=== PATIENT | male | born 1990 | race Caucasian/White ===

== ENCOUNTER 2019-02-17 13:38 | Emergency (ER) | payer SELFPAY ==
[~2019-02-17] VITALS: Ht 162.6 cm; Wt 59.0 kg
[~2019-02-17 13:38] MED LIST: CHLO25CA9 PO; Nicotine 21MG TD
--- NOTE | 2019-02-17 14:18 | PHYS DOC ---
Past Medical History Past Medical History: Unknown Past Surgical History: Other Additional Past Surgical Histo: UNKNOWN Alcohol Use: Occasionally Drug Use: Methamphetamine, Phencyclidine Adult General Chief Complaint Chief Complaint: ANKLE PROBLEM HPI HPI Patient is a 29 year old male with history of methamphetamine use who presents to the ED today complaining of sharp 7 out of 10 right ankle pain that has been going on since February 07, 2019 when he was evaluated in the ED for methamphetamine overdose, admitted. Patient denies any known injury. Denies any numbness or tingling to the right lower extremity. States the pain is worse on weight- bearing. He is also complaining of swelling to the right ankle. Review of Systems Review of Systems Constitutional: Denies fever or chills [] Musculoskeletal: Reports right ankle pain Integument: Denies rash or skin lesions [] Neurologic: Denies headache, focal weakness or sensory changes [] All other systems were reviewed and found to be within normal limits, except as documented in this note. Allergies Allergies Allergies Coded Allergies Type Severity Reaction Last Updated Verified No Known Drug Allergies 02/06/19 No Physical Exam Physical Exam Constitutional: Well developed, well nourished, no acute distress, non-toxic appearance. [] Skin: Warm, dry, no erythema, no rash. [] Back: No tenderness, no CVA tenderness. [] Extremities: Right lower extremity with no obvious deformity. Moderate soft tissue swelling noted on the medial as well as lateral aspect of the right ankle. Full range of motion to the right ankle and foot. Tenderness to the medial as well as lateral aspect of her ankle. +2 right pedal pulse. Cap refill less than 2 seconds the right toes. Sensation intact to the right lower extremity. Neurologic: Alert and oriented X 3, normal motor function, normal sensory function, no focal deficits noted. [] Psychologic: Flat affect, appears intoxicated Current Patient Data Vital Signs Vital Signs Date Time Temp Pulse Resp B/P (MAP) Pulse Ox O2 Delivery O2 Flow Rate FiO2 02/17/19 14:01 98.7 100 18 162/98 (119) 99 Room Air 98.7 EKG EKG [] Radiology/Procedures Radiology/Procedures []PROCEDURE: ANKLE RIGHT 3V ANKLE RIGHT 3V, FOOT RIGHT 3V Clinical Indication: Right medial foot and ankle pain after fall Comparison: Right ankle, 2 views, 02/08/2019. Ankle Findings: There is no acute fracture or dislocation. The bony appearance is normal for patient age and the alignment is normal. The ankle mortise is intact. Question ankle joint effusion. There is moderate lateral and anterior ankle soft tissue swelling, worse than on prior study. Foot findings: There is no acute fracture or dislocation. The bony alignment is normal. There is no soft tissue abnormality. IMPRESSION: No acute fracture. Electronically signed by: Simba Ricardo MD (02/17/2019 2:35 PM) [facility] DICTATED and SIGNED BY: SIMBA RICARDO MD DATE: 02/17/19 1437 Course & Med Decision Making Course & Med Decision Making Pertinent Labs and Imaging studies reviewed. (See chart for details) This is a 29-year-old male patient presenting to the ED today with right ankle pain for 11 days no injury. Right ankle right foot x-rays interpreted by radiologist are negative for any acute findings. Salvador bandage and air cast applied to the right ankle by the ED RN, neurovascular exam is intact. Ice elevation encouraged. OTC pain relievers especially anti-inflammatories recommended. Follow-up with orthopedic doctor in one week. Dragon Disclaimer Dragon Disclaimer This electronic medical record was generated, in whole or in part, using a voice recognition dictation system. Departure Departure Impression: Primary Impression: Moderate right ankle sprain Additional Impression: Right foot pain Disposition: 01 HOME, SELF-CARE Condition: STABLE Referrals: NO PCP (PCP) RUBY MORAN MD Call his office on Tuesday and set up a follow-up appointment Patient Instructions: Ankle Sprain, [id number] Additional Instructions: You right ankle sprain and right foot pain, your right foot and right ankle x- rays are negative for any acute findings. Wear the Salvador bandage and air cast provided as tolerated. Try to ice and elevate the extremity. Take [id number] pain relievers especially anti-inflammatories like ibuprofen as needed for pain. Please call the orthopedic doctor on Tuesday and set up a follow-up appointment Problem Qualifiers Primary Impression: Moderate right ankle sprain Encounter type: initial encounter Qualified Codes: S93.401A - Sprain of unspecified ligament of right ankle, initial encounter CARMINE CHURCH APRN Feb 17, 2019 14:18
[2019-02-17 14:31] VITALS: BP 150/88
--- NOTE | 2019-02-17 14:38 | RAD ---
ANKLE RIGHT 3V, FOOT RIGHT 3V Clinical Indication: Right medial foot and ankle pain after fall Comparison: Right ankle, 2 views, 02/08/2019. Ankle Findings: There is no acute fracture or dislocation. The bony appearance is normal for patient age and the alignment is normal. The ankle mortise is intact. Question ankle joint effusion. There is moderate lateral and anterior ankle soft tissue swelling, worse than on prior study. Foot findings: There is no acute fracture or dislocation. The bony alignment is normal. There is no soft tissue abnormality. IMPRESSION: No acute fracture. Electronically signed by: Simba Dorsey MD (02/17/2019 2:35 PM) [facility]
== END 2019-02-17 14:56 | disposition home or self-care (01) ==
LOC: ER 13:38
DX: S93.401A Sprain of unspecified ligament of right ankle, initial encounter (principal); W18.39XA Other fall on same level, initial encounter; Y93.89 Activity, other specified; Y92.89 Other specified places as the place of occurrence of the external cause; Y99.8 Other external cause status
CPT/HCPCS: 73610; 73630; 99284; L4350

== ENCOUNTER 2019-04-06 18:19 | Emergency (ER) | payer SELFPAY ==
[~2019-04-06] VITALS: Ht 152.4 cm; Wt 59.0 kg
--- NOTE | 2019-04-06 18:29 | PHYS DOC ---
Past Medical History Past Medical History: Unknown Past Surgical History: Other Additional Past Surgical Histo: UNKNOWN Alcohol Use: Occasionally Drug Use: Methamphetamine, Phencyclidine Adult General Chief Complaint Chief Complaint: DRUG ABUSE HPI HPI Patient is a 29 year old male who presents via EMS with confusion after using K2. Patient's family called EMS and stated that patient is confused. Patient stated he used K2 once today and had alcohol yesterday. Patient denies any pain and was alert and oriented 2 at arrival to ER. Patient denies suicidal or homicidal ideation or hallucination. Review of Systems Review of Systems Constitutional: Denies fever or chills [] Eyes: Denies change in visual acuity, redness, or eye pain [] HENT: Denies nasal congestion or sore throat [] Respiratory: Denies cough or shortness of breath [] Cardiovascular: No additional information not addressed in HPI [] GI: Denies abdominal pain, nausea, vomiting, bloody stools or diarrhea [] : Denies dysuria or hematuria [] Musculoskeletal: Denies back pain or joint pain [] Integument: Denies rash or skin lesions [] Neurologic: Denies headache, focal weakness or sensory changes [] Endocrine: Denies polyuria or polydipsia [] All other systems were reviewed and found to be within normal limits, except as documented in this note. Current Medications Current Medications Current Medications Medications (Trade) Dose Ordered Sig/Rob Start Time Stop Time Status Last Admin Dose Admin Sodium Chloride 1,000 ml @ 1,000 mls/hr Q1H 04/06/19 18:30 04/06/19 19:29 DC 04/06/19 18:44 1,000 MLS/HR Allergies Allergies Allergies Coded Allergies Type Severity Reaction Last Updated Verified No Known Drug Allergies 02/06/19 No Physical Exam Physical Exam Constitutional: Well nourished, mild distress, non-toxic appearance. [] HENT: Normocephalic, atraumatic. Eyes: PERRLA, EOMI, conjunctiva normal, no discharge. [] Neck: Normal range of motion, no tenderness, supple, no stridor. [] Cardiovascular: Tachycardia, no murmur [] Lungs & Thorax: Bilateral breath sounds clear to auscultation [] Abdomen: Bowel sounds normal, soft, no tenderness, no masses, no pulsatile masses. [] Skin: Warm, dry, no erythema, no rash. [] Back: No tenderness, no CVA tenderness. [] Extremities: No tenderness, no cyanosis, no clubbing, ROM intact, no edema. [] Neurologic: Alert and oriented X 2, no focal deficits noted. [] Psychologic: Affect normal, judgement normal, mood normal. [] Current Patient Data Vital Signs Vital Signs Date Time Temp Pulse Resp B/P (MAP) Pulse Ox O2 Delivery O2 Flow Rate FiO2 04/06/19 20:49 2 15 92/59 (70) 97 Room Air 04/06/19 18:39 100.6 100.6 Lab Values Laboratory Tests Test 04/06/19 18:22 04/06/19 18:30 04/06/19 20:30 Glucose (Fingerstick) 175 mg/dL (70-99) H White Blood Count 8.4 x10^3/uL (4.0-11.0) Red Blood Count 4.08 x10^6/uL (4.30-5.70) L Hemoglobin 14.0 g/dL (13.0-17.5) Hematocrit 39.9 % (39.0-53.0) Mean Corpuscular Volume 98 fL (79-100) Mean Corpuscular Hemoglobin 34 pg (25-35) Mean Corpuscular Hemoglobin Concent 35 g/dL (31-37) Red Cell Distribution Width 13.4 % (11.5-14.5) Platelet Count 238 x10^3/uL (140-400) Neutrophils (%) (Auto) 59 % (31-73) Lymphocytes (%) (Auto) 33 % (24-48) Monocytes (%) (Auto) 6 % (0-9) Eosinophils (%) (Auto) 1 % (0-3) Basophils (%) (Auto) 1 % (0-3) Neutrophils # (Auto) 5.0 x10^3/uL (1.8-7.7) Lymphocytes # (Auto) 2.8 x10^3/uL (1.0-4.8) Monocytes # (Auto) 0.5 x10^3/uL (0.0-1.1) Eosinophils # (Auto) 0.1 x10^3/uL (0.0-0.7) Basophils # (Auto) 0.1 x10^3/uL (0.0-0.2) Prothrombin Time 13.6 SEC (11.7-14.0) Prothrombin Time INR 1.1 (0.8-1.1) Sodium Level 140 mmol/L (136-145) Potassium Level 3.4 mmol/L (3.5-5.1) L Chloride Level 105 mmol/L (98-107) Carbon Dioxide Level 28 mmol/L (21-32) Anion Gap 7 (6-14) Blood Urea Nitrogen 11 mg/dL (8-26) Creatinine 1.1 mg/dL (0.7-1.3) Estimated GFR (Cockcroft-Gault) 80.3 Glucose Level 165 mg/dL (70-99) H Calcium Level 9.1 mg/dL (8.5-10.1) Magnesium Level 1.9 mg/dL (1.8-2.4) Total Bilirubin 0.8 mg/dL (0.2-1.0) Direct Bilirubin 0.2 mg/dL (0.0-0.2) Aspartate Amino Transferase (AST) 36 U/L (15-37) Alanine Aminotransferase (ALT) 58 U/L (16-63) Alkaline Phosphatase 65 U/L (46-116) Total Protein 7.7 g/dL (6.4-8.2) Albumin 4.2 g/dL (3.4-5.0) Ethyl Alcohol Level < 3 mg/dL (0-10) Urine Color Gerda Urine Clarity Clear Urine pH 5.5 Urine Specific [place] 1.025 Urine Protein 100 mg/dL (NEG-TRACE) Urine Glucose (UA) Negative mg/dL (NEG) Urine Ketones (Stick) Negative mg/dL (NEG) Urine Blood Negative (NEG) Urine Nitrite Negative (NEG) Urine Bilirubin Small (NEG) Urine Urobilinogen Dipstick 2.0 mg/dL (0.2 mg/dL) Urine Leukocyte Esterase Negative (NEG) Urine RBC 0 /HPF (0-2) Urine WBC 1-4 /HPF (0-4) Urine Squamous Epithelial Cells Occ /LPF Urine Bacteria 0 /HPF (0-FEW) Urine Hyaline Casts Few /HPF Urine Mucus Mod /LPF Urine Opiates Screen Neg (NEG) Urine Methadone Screen Neg (NEG) Urine Barbiturates Neg (NEG) Urine Phencyclidine Screen Neg (NEG) Urine Amphetamine/Methamphetamine Neg (NEG) Urine Benzodiazepines Screen Neg (NEG) Urine Cocaine Screen Neg (NEG) Urine Cannabinoids Screen Pos (NEG) Urine Ethyl Alcohol Neg (NEG) Laboratory Tests 04/06/19 18:30 Laboratory Tests 04/06/19 18:30 EKG EKG EKG interpreted by me. EKG at 1837 showed sinus tachycardia at rate of 101, left atrial abnormality, no acute ST and T-wave abnormalities. Radiology/Procedures Radiology/Procedures [] Course & Med Decision Making Course & Med Decision Making Pertinent Labs studies reviewed. (See chart for details) Evaluation of patient in ER showed 29-year-old male patient with confusion after taking K2. Patient was treated with IV fluid in ER and his condition improved and was able tolerate without problem and asking the question without problem. I've spoken with the patient and/or caregivers. I've explained the patient's condition, diagnosis and treatment plan based on information available to me at this time. I've answered the patient's and/or caregivers questions and addressed any concerns. The patient and/or caregivers have a good understanding the patient's diagnosis, condition and treatment plan as can be expected at this point. Vital signs have been stabilized. The patient's condition is stable for discharge from the emergency department. The patient will pursue further outpatient evaluation with her primary care provider or other designated consulting physician as outlined in the discharge instructions. Patient and/or caregivers are agreeable to this plan of care and follow-up instructions have been explained in detail. The patient and/or caregivers have received these instructions in written format and expressed understanding of these discharge instructions. The patient and her caregivers are aware that if any significant change in condition or worsening of symptoms should prompt him to immediately return to this of the closest emergency department. If an emergent department is not readily available I would enco urage him to call 911. Heidi Disclaimer Heidi Disclaimer This electronic medical record was generated, in whole or in part, using a voice recognition dictation system. Departure Departure Impression: Primary Impression: Altered level of consciousness Additional Impressions: Substance abuse Hypokalemia Disposition: HOME, SELF-CARE (at 2107) Condition: IMPROVED Referrals: NO PCP (PCP) Patient Instructions: Altered Mental Status, Hypokalemia, Substance Abuse-Brief Additional Instructions: Drink plenty of liquids Follow-up with your primary care physician in 3-5 days Return to ER if not getting better Problem Qualifiers RADHA MERAZ MD Apr 06, 2019 18:29
[2019-04-06] MEDS ORDERED: IV NORMAL SALINE 1000ML BAG 1,000 ML IV SCH (18:30)
[2019-04-06 18:42] LABS: BASO # 0.1 x10^3/uL (0.0-0.2); BASO % 1 % (0-3); EOS # 0.1 x10^3/uL (0.0-0.7); EOS % 1 % (0-3); HEMATOCRIT 39.9 % (39.0-53.0); LYMPH # 2.8 x10^3/uL (1.0-4.8); LYMPH % 33 % (24-48); MEAN CORPUSCULAR HEMOGLOBIN 34 pg (25-35); MEAN CORPUSCULAR HGB CONC 35 g/dL (31-37); MEAN CORPUSCULAR VOLUME 98 fL (79-100); MONO # 0.5 x10^3/uL (0.0-1.1); MONO % 6 % (0-9); NEUT % 59 % (31-73); PLATELET COUNT 238 x10^3/uL (140-400); RED BLOOD COUNT 4.08 x10^6/uL (4.30-5.70); RED CELL DISTRIBUTION WIDTH 13.4 % (11.5-14.5); WHITE BLOOD COUNT 8.4 x10^3/uL (4.0-11.0)
[2019-04-06 18:51] LABS: CALCIUM 9.1 mg/dL (8.5-10.1); CREATININE 1.1 mg/dL (0.7-1.3); GFR 80.3; POTASSIUM 3.4 mmol/L (3.5-5.1)
[2019-04-06 18:56] LABS: PROTHROMBIN TIME PATIENT 13.6 SEC (11.7-14.0)
[2019-04-06 19:05] LABS: ALBUMIN 4.2 g/dL (3.4-5.0); DIRECT BILIRUBIN 0.2 mg/dL (0.0-0.2); MAGNESIUM 1.9 mg/dL (1.8-2.4); TOTAL BILIRUBIN 0.8 mg/dL (0.2-1.0); TOTAL PROTEIN 7.7 g/dL (6.4-8.2)
[2019-04-06 20:42] LABS: BILIRUBIN,URINE SMALL (NEG); CLARITY,URINE CLEAR; COLOR,URINE AMBER; NITRITE,URINE NEGATIVE (NEG); PH,URINE 5.5; PROTEIN,URINE 100 mg/dL (NEG-TRACE)
[2019-04-06 20:48] LABS: BARBITURATES NEG (NEG); BENZODIAZEPINES NEG (NEG); CANNABINOIDS POS (NEG); COCAINE NEG (NEG); METHADONE NEG (NEG); OPIATES NEG (NEG); PHENCYCLIDINE NEG (NEG)
[2019-04-06 20:49] VITALS: BP 92/59
[2019-04-06 20:49] LABS: AMPHETAMINE/METHAMPHETAMINE NEG (NEG)
[2019-04-06 20:54] LABS: BACTERIA,URINE 0 /HPF (0-FEW); RBC,URINE 0 /HPF (0-2); SQUAMOUS EPITHELIAL CELL,UR OCC /LPF
[2019-04-06 20:55] LABS: HYALINE CASTS, URINE FEW /HPF
--- NOTE | 2019-04-07 10:15 | EKG ---
[facility] [address] [place] [address] Test Date: 2019-04-06 Test Time: 18:37:35 Pat Name: ERICH QUEZADA Department: Room: Gender: M Talent Recruiter: : 1990 Requested By: RADHA MERAZ Order Number: [id number] Reading MD: Rubio Barron MD Measurements Intervals [place] Rate: 100 P: 62 [place]: 136 QRS: 47 QRSD: 86 T: 47 QT: 330 QTc: 428 Interpretive Statements SINUS TACHYCARDIA Electronically Signed On 04-17-2019 10:14:17 CDT by Rubio Barron MD
== END 2019-04-06 21:18 | disposition home or self-care (01) ==
LOC: ER 18:19
DX: R40.4 Transient alteration of awareness (principal); F12.10 Cannabis abuse, uncomplicated; E87.6 Hypokalemia; R41.0 Disorientation, unspecified; F15.10 Other stimulant abuse, uncomplicated; F16.10 Hallucinogen abuse, uncomplicated
CPT/HCPCS: 36415; 80048; 80076; 80307; 81001; 82962; 83735; 85025; 85610; 93005; 96360; 99285; G0480; J7030

== ENCOUNTER 2020-02-23 20:24 | Emergency (ER) | payer SELFPAY | END 2020-02-23 20:46 | disposition left against medical advice (07) | LOC: ER 20:24 | DX: M25.519 Pain in unspecified shoulder (principal); Z53.21 Procedure and treatment not carried out due to patient leaving prior to being seen by health care provider ==

== ENCOUNTER 2020-02-26 10:00 | Emergency (ER) | payer SELFPAY ==
[~2020-02-26] VITALS: Ht 162.6 cm; Wt 63.1 kg
[2020-02-26 10:12] VITALS: BP 128/94
--- NOTE | 2020-02-26 10:41 | PHYS DOC ---
Past Medical History Past Medical History: Unknown Additional Past Medical Histor: poor historian Past Surgical History: Other Additional Past Surgical Histo: UNKNOWN Smoking Status: Current Every Day Smoker Alcohol Use: Occasionally Drug Use: Methamphetamine, Phencyclidine, Other General Adult EDM: Chief Complaint: CHEST PAIN HPI: HPI: Patient is a 30-year-old male that I just discharged less than an hour ago checks and again with the same complaints asking for a coronavirus test. He has not had any fever or body aches he has pain in his chest from falling on a piece of wood recently. He admits to taking methamphetamines within the last couple of days. [] Review of Systems: Review of Systems: Constitutional: Denies fever or chills. [] Eyes: Denies change in visual acuity. [] HENT: Denies nasal congestion or sore throat. [] Respiratory: Denies cough or shortness of breath. [] Cardiovascular: Per HPI. [] GI: Denies abdominal pain, nausea, vomiting, bloody stools or diarrhea. [] : Denies dysuria. [] Musculoskeletal: Denies back pain or joint pain. [] Integument: Denies rash. [] Neurologic: Denies headache, focal weakness or sensory changes. [] Endocrine: Denies polyuria or polydipsia. [] Lymphatic: Denies swollen glands. [] Psychiatric: Denies depression or anxiety. [] Heart Score: Risk Factors: Risk Factors: DM, Current or recent (<one month) smoker, HTN, HLP, family history of CAD, obesity. Risk Scores: Score 0 - 3: 2.5% MACE over next 6 weeks - Discharge Home Score 4 - 6: 20.3% MACE over next 6 weeks - Admit for Clinical Observation Score 7 - 10: 72.7% MACE over next 6 weeks - Early Invasive Strategies Allergies: Allergies: Allergies Coded Allergies Type Severity Reaction Last Updated Verified No Known Drug Allergies 02/06/19 No Physical Exam: PE: Constitutional: Well developed, well nourished, no acute distress, non-toxic appearance, I woke the patient up from sleep when I came in to evaluate him.. [] HENT: Normocephalic, atraumatic, bilateral external ears normal, oropharynx moist, no oral exudates, nose normal. [] Eyes: PERRLA, EOMI, conjunctiva normal, no discharge. [] Neck: Normal range of motion, no tenderness, supple, no stridor. [] Cardiovascular:Heart rate regular rhythm, no murmur [] Lungs & Thorax: Bilateral breath sounds clear to auscultation, mild tender to palp no subcu air no crepitus left chest [] Abdomen: Bowel sounds normal, soft, no tenderness, no masses, no pulsatile mass es. [] Skin: Warm, dry, no erythema, no rash. [] Back: No tenderness, no CVA tenderness. [] Extremities: No tenderness, no cyanosis, no clubbing, ROM intact, no edema. [] Neurologic: Alert and oriented X 3, normal motor function, normal sensory function, no focal deficits noted. [] Psychologic: Anxious. [] EKG: EKG: [] Radiology/Procedures: Radiology/Procedures: [] Course & Med Decision Making: Course & Med Decision Making Pertinent Labs and Imaging studies reviewed. (See chart for details) [ED course: I once again explained to the patient that there was no indication to test him for coronavirus at this time. Again he became agitated and had to be escorted out by security] Heidi Disclaimer: Heidi Disclaimer: This electronic medical record was generated, in whole or in part, using a voice recognition dictation system. Departure Departure Impression: Primary Impression: Anxiety disorder due to medical condition Additional Impression: Methamphetamine use Disposition: 01 HOME, SELF-CARE Condition: STABLE Referrals: NO PCP (PCP) Patient Instructions: Anxiety and Panic Attacks Justicifation of Admission Dx: Justifications for Admission: Justification of Admission Dx: No BRUCE NOVAK DO Feb 26, 2020 10:41
--- NOTE | 2020-02-26 16:27 | EKG ---
[facility] [address] [place] [address] Test Date: 2020-02-26 Test Time: 09:00:51 Pat Name: ERICH QUEZADA Department: Room: Gender: M Associate Financial Advisor: : 1990 Requested By: BRUCE NOVAK Order Number: [id number] Reading MD: Measurements Intervals [place] Rate: 82 P: 69 [place]: 128 QRS: 71 QRSD: 90 T: 51 QT: 364 QTc: 428 Interpretive Statements SINUS RHYTHM QRS(T) CONTOUR ABNORMALITY CONSIDER ANTEROSEPTAL MYOCARDIAL DAMAGE POSSIBLY ABNORMAL ECG RI6.01 No previous ECG available for comparison
== END 2020-02-26 10:41 | disposition home or self-care (01) ==
LOC: ER 10:00
DX: F41.9 Anxiety disorder, unspecified (principal); F15.90 Other stimulant use, unspecified, uncomplicated; R07.89 Other chest pain; F17.200 Nicotine dependence, unspecified, uncomplicated
CPT/HCPCS: 93005; 99283

== ENCOUNTER 2020-02-28 05:32 | Emergency (ER) | payer SELFPAY ==
[~2020-02-28] VITALS: Ht 165.1 cm; Wt 60.0 kg
[2020-02-28] MEDS ORDERED: IOHEXOL 300 MG/ML 100ML VIAL. IV ONE (09:30)
[2020-02-28] MEDS ORDERED: CONTRAST GIVEN. MC PRN (09:30)
[2020-02-28 09:32] LABS: BASO # 0.1 x10^3/uL (0.0-0.2); BASO % 1 % (0-3); EOS # 0.1 x10^3/uL (0.0-0.7); EOS % 1 % (0-3); HEMATOCRIT 45.3 % (39.0-53.0); HEMOGLOBIN 15.4 g/dL (13.0-17.5); LYMPH # 2.6 x10^3/uL (1.0-4.8); LYMPH % 32 % (24-48); MEAN CORPUSCULAR HEMOGLOBIN 34 pg (25-35); MEAN CORPUSCULAR HGB CONC 34 g/dL (31-37); MEAN CORPUSCULAR VOLUME 99 fL (79-100); MONO # 0.8 x10^3/uL (0.0-1.1); MONO % 10 % (0-9); NEUT # 4.8 x10^3/uL (1.8-7.7); NEUT % 57 % (31-73); PLATELET COUNT 273 x10^3/uL (140-400); RED BLOOD COUNT 4.59 x10^6/uL (4.30-5.70); RED CELL DISTRIBUTION WIDTH 13.9 % (11.5-14.5); WHITE BLOOD COUNT 8.4 x10^3/uL (4.0-11.0)
[2020-02-28 09:46] LABS: CALCIUM 8.6 mg/dL (8.5-10.1); CREATININE 0.9 mg/dL (0.7-1.3); GFR 100.5; POTASSIUM 4.1 mmol/L (3.5-5.1)
--- NOTE | 2020-02-28 10:49 | RAD ---
EXAM: CT OF THE CHEST WITH CONTRAST. HISTORY: Trauma, chest pain. TECHNIQUE: Computed tomography of the chest was performed after the intravenous administration of iodinated contrast. One or more of the following individualized dose reduction techniques were utilized for this examination: 1. Automated exposure control. 2. Adjustment of the mA and/or kV according to patient size. 3. Use of iterative reconstruction technique. COMPARISON: None. FINDINGS: Images of the upper abdomen reveal no acute abnormality. Bone windows reveal no suspicious lesions. There are no displaced rib fractures. There are no pathologically enlarged mediastinal or axillary lymph nodes. There is no pleural or pericardial effusion. The heart is not enlarged. There is a normal variant origin of the left vertebral artery directly from the aortic arch. Mild to moderate paraseptal emphysema throughout the apices is relatively advanced for patient age. There is no pneumothorax. IMPRESSION: 1. No evidence of acute injury to the chest. 2. Mild to moderate paraseptal emphysema is advanced for patient age. Electronically signed by: Kenji Calhoun MD (02/28/2020 10:46 AM) [id number]
[2020-02-28 10:56] VITALS: BP 133/78
[2020-02-28] MEDS ORDERED: IBUP-1007 PO (12:02)
[2020-02-28] MEDS ORDERED: METH-38 PO (12:02)
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
== END 2020-02-28 12:16 | disposition home or self-care (01) ==
LOC: ER 05:32
DX: R07.81 Pleurodynia (principal); F41.9 Anxiety disorder, unspecified; J45.909 Unspecified asthma, uncomplicated; F32.9 Major depressive disorder, single episode, unspecified; F17.200 Nicotine dependence, unspecified, uncomplicated; F19.90 Other psychoactive substance use, unspecified, uncomplicated
CPT/HCPCS: 36415; 71260; 80048; 84484; 85025; 99285; Q9967

== ENCOUNTER 2020-03-04 15:00 | Emergency (ER) | payer SELFPAY ==
[~2020-03-04] VITALS: Ht 162.6 cm; Wt 54.5 kg
[~2020-03-04 15:00] MED LIST changes: +IBUP-1007 PO; +METH-38 PO
--- NOTE | 2020-03-04 17:25 | PHYS DOC ---
Past Medical History Past Medical History: Anxiety, Asthma, Bronchitis, Depression, Seizure, U nknown, Other Additional Past Medical Histor: METH USE,EPILEPSY (SHAZIA CALDERON APRN) Past Surgical History: No Surgical History Additional Past Surgical Histo: UNKNOWN (SHZAIA CALDERON APRN) Smoking Status: Current Every Day Smoker Alcohol Use: Occasionally Drug Use: Methamphetamine, Phencyclidine, Other (SHAZIA CALDERON APRN) General Adult EDM: Chief Complaint: INSECT BITE HPI: HPI: Patient is a 30-year-old male who presents to the emergency department with complaints of a painful, red, tender area to the proximal fifth metacarpal of his right hand for the last 5 days. He denies any drainage or bleeding from the site. Patient believes that it first started as a spider bite. He denies any fever, numbness, tingling, weakness, itching, or decreased range of motion of the affected extremity. Patient reports a history of IV meth injection in the same arm 2 weeks ago. Patient denies any problems at the injection site. He currently rates his pain a 10 out of 10 on pain scale, he denies radiation of the pain, the pain is worse with movement and palpation. He states that the pain is constant. (SHAZIA CALDERON APRN) Review of Systems: Review of Systems: Constitutional: Denies fever or chills. [] Musculoskeletal: See HPI Integument: See HPI Neurologic: Denies focal weakness or sensory changes. [] Psychiatric: Denies depression or anxiety. [] (SHAZIA CALDERON APRN) Heart Score: Risk Factors: Risk Factors: DM, Current or recent (<one month) smoker, HTN, HLP, family history of CAD, obesity. Risk Scores: Score 0 - 3: 2.5% MACE over next 6 weeks - Discharge Home Score 4 - 6: 20.3% MACE over next 6 weeks - Admit for Clinical Observation Score 7 - 10: 72.7% MACE over next 6 weeks - Early Invasive Strategies (SHAZIA CALDERON APRN) Allergies: Allergies: Allergies Coded Allergies Type Severity Reaction Last Updated Verified No Known Drug Allergies 02/06/19 No (SHAZIA CALDERON APRN) Physical Exam: PE: Constitutional: Well developed, well nourished, no acute distress, non-toxic appearance. [] HENT: Normocephalic, atraumatic, bilateral external ears normal, nose normal. [] Eyes: PERRLA, EOMI, conjunctiva normal, no discharge. [] Neck: Normal range of motion, no stridor. [] Cardiovascular:Heart rate regular rhythm Lungs & Thorax: Respirations even and unlabored, no retractions, no respiratory distress Skin: Warm, dry; 2 cm diameter area of erythema to the proximal fifth metacarpal on the dorsal surface with central punctum consistent with an infected insect bite. No streaking of erythema up the forearm. No bleeding or purulent drai nage Extremities: R hand: Lateral tenderness to palpation, no crepitus, no obvious deformity, no cyanosis, ROM intact Neurologic: Alert and oriented X 3, no focal deficits noted. [] Psychologic: Affect normal, judgement normal, mood normal. [] (SHAZIA CALDERON APRN) Current Patient Data: Vital Signs: Vital Signs Date Time Temp Pulse Resp B/P (MAP) Pulse Ox O2 Delivery O2 Flow Rate FiO2 03/04/20 16:15 98.9 94 12 143/67 (92) 100 Room Air 98.9 (SHAZIA CALDERON APRN) EKG: EKG: [] (SHAZIA CALDERON APRN) Radiology/Procedures: Radiology/Procedures: Indication: abscess Procedure: The patient was positioned appropriately. Local anesthesia was 1% lidocaine. An incision was then made over the apex of the lesion using an 11 blade scalpel and small amount of bloody pus material was expressed. The drainage cavity was irrigated and cleansed with a chlorhexidine scrub. The patient tolerated the procedure well. Complications: none, minimal blood loss.[] (SHAZIA CALDERON APRN) Course & Med Decision Making: Course & Med Decision Making Pertinent Labs and Imaging studies reviewed. (See chart for details) [] (SHAZIA CALDERON APRN) Dragon Disclaimer: Dragon Disclaimer: This electronic medical record was generated, in whole or in part, using a voice recognition dictation system. (SHAZIA CALDERON APRN) Departure Departure Impression: Primary Impression: Abscess of right hand excluding fingers and thumb Disposition: 01 HOME, SELF-CARE Condition: STABLE Referrals: NO PCP (PCP) Patient Instructions: Abscess, Care After Additional Instructions: Fill the prescription(s) and use as directed. You may also take Tylenol as needed for pain. Apply warm, moist heat to the area 4x a day an as needed for comfort. Follow up with your primary care doctor in 1-2 days. Return to the ER if fever develops or symptoms worsen. [facility] [address] [place] [address] [facility] [address] [place] [address] [facility] [address] [facility] [place] [address] [facility] [address] [place] [address] [facility] [address] [place] [address] [facility] [address] [place] [address] [facility] [address] [place] [address] [email or web address] [facility] [address] [place] [address] [facility] [address] [place] [address] [facility] [address] [place] [address] Scripts Naproxen (NAPROXEN) 500 Mg Tablet 1 TAB PO BID PRN for PAIN for 10 Days, #20 TAB 0 Refills Prov: SHAZIA CALDERON APRN 03/04/20 Clindamycin Hcl (CLINDAMYCIN HCL) 150 Mg Capsule 450 MG PO TID for 7 Days, #63 CAP 0 Refills Prov: SHAZIA CALDERON APRN 03/04/20 Justicifation of Admission Dx: Justifications for Admission: Justification of Admission Dx: N/A (SHAZIA CALDERON APRN) Attending Signature Attending Signature I was personally available for consult in the emergency department. I have reviewed the chart and agree with the documentation as recorded by the ANNABEL including the assessment, treatment plan and disposition. (CARRIE FOWLER DO) SHAZIA CALDERON APRN Mar 04, 2020 17:25 CARRIE FOWLER DO Mar 05, 2020 06:26
[2020-03-04] MEDS ORDERED: LIDOCAINE 1% PF 2 ML VIAL. INJ ONE (17:30)
[2020-03-04] MEDS ORDERED: NAPR-514 PO (18:57)
[2020-03-04] MEDS ORDERED: CLIN150C14 PO (18:57)
[2020-03-04] MEDS ORDERED: HYDROcodone/APAP 5/325MG 1 TAB TABLET PO ONE (19:00)
[2020-03-04 19:15] VITALS: BP 138/77
== END 2020-03-04 19:22 | disposition home or self-care (01) ==
LOC: ER 15:00
DX: L02.511 Cutaneous abscess of right hand (principal); J45.909 Unspecified asthma, uncomplicated; G40.909 Epilepsy, unspecified, not intractable, without status epilepticus; F17.200 Nicotine dependence, unspecified, uncomplicated
CPT/HCPCS: 10060; 99283; J3490

== ENCOUNTER 2020-12-08 18:08 | Emergency (ER) | payer SELFPAY ==
[~2020-12-08] VITALS: Ht 165.1 cm; Wt 59.5 kg
[~2020-12-08 18:08] MED LIST changes: +CLIN150C15 PO; +NAPR-514 PO
[2020-12-08 19:06] LABS: BASO % 0 % (0-3); EOS # 0.1 x10^3/uL (0.0-0.7); EOS % 1 % (0-3); HEMATOCRIT 41.9 % (39.0-53.0); HEMOGLOBIN 14.3 g/dL (13.0-17.5); LYMPH # 1.8 x10^3/uL (1.0-4.8); LYMPH % 25 % (24-48); MEAN CORPUSCULAR HEMOGLOBIN 34 pg (25-35); MEAN CORPUSCULAR HGB CONC 34 g/dL (31-37); MEAN CORPUSCULAR VOLUME 100 fL (79-100); MONO # 0.7 x10^3/uL (0.0-1.1); MONO % 10 % (0-9); NEUT # 4.6 x10^3/uL (1.8-7.7); NEUT % 63 % (31-73); PLATELET COUNT 161 x10^3/uL (140-400); RED BLOOD COUNT 4.18 x10^6/uL (4.30-5.70); RED CELL DISTRIBUTION WIDTH 14.1 % (11.5-14.5); WHITE BLOOD COUNT 7.3 x10^3/uL (4.0-11.0)
[2020-12-08 19:15] LABS: CALCIUM 8.3 mg/dL (8.5-10.1); CREATININE 0.8 mg/dL (0.7-1.3); GFR 115.1; POTASSIUM 3.8 mmol/L (3.5-5.1)
[2020-12-08 19:21] LABS: ALBUMIN 3.5 g/dL (3.4-5.0); ALBUMIN/GLOBULIN RATIO 1.1 (1.0-1.7); MAGNESIUM 1.8 mg/dL (1.8-2.4); TOTAL BILIRUBIN 0.5 mg/dL (0.2-1.0); TOTAL PROTEIN 6.6 g/dL (6.4-8.2)
[2020-12-09 01:50] LABS: BILIRUBIN,URINE NEGATIVE (NEG); CLARITY,URINE CLOUDY; COLOR,URINE YELLOW; NITRITE,URINE NEGATIVE (NEG); PROTEIN,URINE 30 mg/dL (NEG-TRACE)
[2020-12-09 01:56] LABS: BARBITURATES NEG (NEG); BENZODIAZEPINES NEG (NEG); CANNABINOIDS POS (NEG); COCAINE NEG (NEG); METHADONE NEG (NEG); OPIATES NEG (NEG); PHENCYCLIDINE NEG (NEG)
[2020-12-09 02:26] LABS: AMPHETAMINE/METHAMPHETAMINE POS (NEG)
[2020-12-09 02:28] LABS: AMORPHOUS SEDIMENT,UR PRESENT /HPF; BACTERIA,URINE 0 /HPF (0-FEW); RBC,URINE OCC /HPF (0-2); WBC,URINE OCC /HPF (0-4)
--- NOTE | 2020-12-09 03:20 | RAD ---
EXAM: CT HEAD WITHOUT IV CONTRAST CLINICAL HISTORY: Reason: fall, CHI / Spl. Instructions: / History: COMPARISON: None. TECHNIQUE: Routine CT of the head without contrast. Soft tissues and bone windows were reviewed. PQRS compliance statement - One or more of the following individualized dose reduction techniques wer e utilized for this study: 1. Automated exposure control 2. Adjustment of the mA and/or kV according to patient size 3. Use of iterative reconstruction technique FINDINGS: There is no evidence of hemorrhage, mass or extra-axial fluid collection. Barajas-white differentiation is maintained with no evidence of edema. Subcortical, periventricular as w ell as deep white matter foci of hypoattenuation likely changes of chronic small vessel disease. There is no mass effect or shift of the intracranial structures. The ventricles, basilar cisterns and cortical sulci are normal in size and configuration for the ally ents stated age. The cerebellum and brainstem are unremarkable. The calvarium demonstrates no evidence of fracture or focal lesion. There is normal aeration of the visualized paranasal sinuses and mastoid air cells. The visualized portions of the orbits are normal. IMPRESSION: No evidence for acute intracranial process. White matter changes likely chronic small vessel disease. EXAM: CT facial bones without contrast CLINICAL HISTORY: Reason: fall, CHI / Spl. Instructions: / History: COMPARISON: None available. TECHNIQUE: Helical CT of the face/paranasal sinuses was acquired and axial, coronal and sagittal refo rmatted images were generated. ---PQRS compliance statement - One or more of the following individualized dose reduction techniques were utilized for this study: 1. Automated exposure control 2. Adjustment of the mA and/or kV according to patient size 3. Use of iterative reconstruction technique--- FINDINGS: No definite fracture is noted of the facial bones. Left maxillary sinus thickening. Mild thickening of the scattered ethmoid air cells. No evidence of air-fluid levels. The mastoids are unremarkable. The globes, extraocular muscles, optic nerves and retrobulbar fat are normal. Visualized upper aerodigestive tract is normal. Dental caries are seen in the right maxillary second molar and left submandibular second molar. Smaller changes are seen at other levels. Mandible and bilateral temporomandibular joints are normal. Soft tissue swelling overlying the forehead and nose. IMPRESSION: No evidence for acute facial bone fracture. Left maxillary sinus and scattered ethmoid air cells thickening, likely sinusitis. Facial swelling. Electronically signed by: Rolo Britton MD (12/09/2020 3:17 AM) JEANNIE
--- NOTE | 2020-12-09 03:59 | ED.ADGEN ---
Past Medical History Past Medical History: Anxiety, Asthma, Bronchitis, Depression, Seizure, Unknown, Other Additional Past Medical Histor: METH USE,EPILEPSY Past Surgical History: No Surgical History Additional Past Surgical Histo: UNKNOWN Smoking Status: Current Every Day Smoker Alcohol Use: Occasionally Drug Use: Methamphetamine, Phencyclidine, Other Social History Narrative: LAST USED TODAY General Adult EDM: Chief Complaint: OVERDOSE HPI: HPI: Patient is a 30 year old [f__sex] who presents with [] Review of Systems: Review of Systems: Constitutional: Denies fever or chills. [] Eyes: Denies change in visual acuity. [] HENT: Denies nasal congestion or sore throat. [] Respiratory: Denies cough or shortness of breath. [] Cardiovascular: Denies chest pain or edema. [] GI: Denies abdominal pain, nausea, vomiting, bloody stools or diarrhea. [] : Denies dysuria. [] Musculoskeletal: Denies back pain or joint pain. [] Integument: Denies rash. [] Neurologic: Denies headache, focal weakness or sensory changes. [] Endocrine: Denies polyuria or polydipsia. [] Lymphatic: Denies swollen glands. [] Psychiatric: Denies depression or anxiety. [] Allergies: Allergies: Allergies Coded Allergies Type Severity Reaction Last Updated Verified No Known Drug Allergies 02/06/19 No Physical Exam: PE: Constitutional: Well developed, well nourished, no acute distress, non-toxic seven earance. [] HENT: Normocephalic, atraumatic, bilateral external ears normal, oropharynx moist, no oral exudates, nose normal. [] Eyes: PERRLA, EOMI, conjunctiva normal, no discharge. [] Neck: Normal range of motion, no tenderness, supple, no stridor. [] Cardiovascular:Heart rate regular rhythm, no murmur [] Lungs & Thorax: Bilateral breath sounds clear to auscultation [] Abdomen: Bowel sounds normal, soft, no tenderness, no masses, no pulsatile masses. [] Skin: Warm, dry, no erythema, no rash. [] Back: No tenderness, no CVA tenderness. [] Extremities: No tenderness, no cyanosis, no clubbing, ROM intact, no edema. [] Neurologic: Alert and oriented X 3, normal motor function, normal sensory function, no focal deficits noted. [] Psychologic: Affect normal, judgement normal, mood normal. [] Current Patient Data: Labs: Laboratory Tests Test 12/08/20 18:55 12/09/20 01:42 White Blood Count 7.3 x10^3/uL (4.0-11.0) Red Blood Count 4.18 x10^6/uL (4.30-5.70) L Hemoglobin 14.3 g/dL (13.0-17.5) Hematocrit 41.9 % (39.0-53.0) Mean Corpuscular Volume 100 fL (79-100) Mean Corpuscular Hemoglobin 34 pg (25-35) Mean Corpuscular Hemoglobin Concent 34 g/dL (31-37) Red Cell Distribution Width 14.1 % (11.5-14.5) Platelet Count 161 x10^3/uL (140-400) Neutrophils (%) (Auto) 63 % (31-73) Lymphocytes (%) (Auto) 25 % (24-48) Monocytes (%) (Auto) 10 % (0-9) H Eosinophils (%) (Auto) 1 % (0-3) Basophils (%) (Auto) 0 % (0-3) Neutrophils # (Auto) 4.6 x10^3/uL (1.8-7.7) Lymphocytes # (Auto) 1.8 x10^3/uL (1.0-4.8) Monocytes # (Auto) 0.7 x10^3/uL (0.0-1.1) Eosinophils # (Auto) 0.1 x10^3/uL (0.0-0.7) Basophils # (Auto) 0.0 x10^3/uL (0.0-0.2) Sodium Level 142 mmol/L (136-145) Potassium Level 3.8 mmol/L (3.5-5.1) Chloride Level 105 mmol/L (98-107) Carbon Dioxide Level 26 mmol/L (21-32) Anion Gap 11 (6-14) Blood Urea Nitrogen 13 mg/dL (8-26) Creatinine 0.8 mg/dL (0.7-1.3) Estimated GFR (Cockcroft-Gault) 115.1 BUN/Creatinine Ratio 16 (6-20) Glucose Level 86 mg/dL (70-99) Calcium Level 8.3 mg/dL (8.5-10.1) L Magnesium Level 1.8 mg/dL (1.8-2.4) Total Bilirubin 0.5 mg/dL (0.2-1.0) Aspartate Amino Transferase (AST) 245 U/L (15-37) H Alanine Aminotransferase (ALT) 445 U/L (16-63) H Alkaline Phosphatase 111 U/L (46-116) Total Protein 6.6 g/dL (6.4-8.2) Albumin 3.5 g/dL (3.4-5.0) Albumin/Globulin Ratio 1.1 (1.0-1.7) Ethyl Alcohol Level 18 mg/dL (0-10) H Urine Collection Type Unknown Urine Color Yellow Urine Clarity Cloudy Urine pH 7.0 (<5.0-8.0) Urine Specific [place] 1.025 (1.000-1.030) Urine Protein 30 mg/dL (NEG-TRACE) Urine Glucose (UA) Negative mg/dL (NEG) Urine Ketones (Stick) Negative mg/dL (NEG) Urine Blood Negative (NEG) Urine Nitrite Negative (NEG) Urine Bilirubin Negative (NEG) Urine Urobilinogen Dipstick 1.0 mg/dL (0.2 mg/dL) Urine Leukocyte Esterase Negative (NEG) Urine RBC Occ /HPF (0-2) Urine WBC Occ /HPF (0-4) Urine Squamous Epithelial Cells Occ /LPF Urine Amorphous Sediment Present /HPF Urine Bacteria 0 /HPF (0-FEW) Urine Mucus Mod /LPF Urine Opiates Screen Neg (NEG) Urine Methadone Screen Neg (NEG) Urine Barbiturates Neg (NEG) Urine Phencyclidine Screen Neg (NEG) Urine Amphetamine/Methamphetamine Pos (NEG) Urine Benzodiazepines Screen Neg (NEG) Urine Cocaine Screen Neg (NEG) Urine Cannabinoids Screen Pos (NEG) Urine Ethyl Alcohol Neg (NEG) Laboratory Tests 12/08/20 18:55 Laboratory Tests 12/08/20 18:55 Vital Signs: Vital Signs Date Time Temp Pulse Resp B/P (MAP) Pulse Ox O2 Delivery O2 Flow Rate FiO2 12/09/20 02:12 72 100 12/08/20 18:08 97.0 16 130/72 (91) Room Air 97.0 EKG: EKG: [] Heart Score: Risk Factors: Risk Factors: DM, Current or recent (<one month) smoker, HTN, HLP, family history of CAD, obesity. Risk Scores: Score 0 - 3: 2.5% MACE over next 6 weeks - Discharge Home Score 4 - 6: 20.3% MACE over next 6 weeks - Admit for Clinical Observation Score 7 - 10: 72.7% MACE over next 6 weeks - Early Invasive Strategies Radiology/Procedures: Radiology/Procedures: [] Course & Med Decision Making: Course & Med Decision Making Pertinent Labs and Imaging studies reviewed. (See chart for details) [] Dragon Disclaimer: Dragon Disclaimer: This electronic medical record was generated, in whole or in part, using a voice recognition dictation system. Departure Departure Impression: Primary Impression: Methamphetamine use Additional Impression: Benzodiazepine overdose Disposition: 01 HOME / SELF CARE / HOMELESS Condition: IMPROVED Referrals: NO PCP (PCP) Patient Instructions: Form - Excuse from Work, School, or Physical Activity, Substance Abuse-Brief Problem Qualifiers EMORY GASPAR MD Dec 09, 2020 03:59
[2020-12-09 04:42] VITALS: BP 113/68
== END 2020-12-09 04:52 | disposition home or self-care (01) ==
LOC: ER 18:08
DX: T42.4X1A Poisoning by benzodiazepines, accidental (unintentional), initial encounter (principal); F15.10 Other stimulant abuse, uncomplicated; F41.9 Anxiety disorder, unspecified; J45.909 Unspecified asthma, uncomplicated; F32.9 Major depressive disorder, single episode, unspecified; G40.909 Epilepsy, unspecified, not intractable, without status epilepticus; F17.200 Nicotine dependence, unspecified, uncomplicated; F16.10 Hallucinogen abuse, uncomplicated; Y92.89 Other specified places as the place of occurrence of the external cause
CPT/HCPCS: 36415; 70450; 70486; 80053; 80307; 81001; 83735; 85025; 99285; G0480